=== PATIENT | female | born 1950 | race Caucasian/White ===

== ENCOUNTER → 2020-01-11 10:02 | Outpatient (CLI) | payer MEDICARE, SELFPAY ==
[2020-01-12 09:31] LABS: COVID19 Sendout NOT DETECTED (Not Detect)
== END ==
PROVIDERS: Visit Provider Physician Assistant
DX: Z01.812 Encounter for preprocedural laboratory examination (principal)
CPT/HCPCS: 87635

== ENCOUNTER → 2020-07-29 13:10 | Outpatient (CLI) | payer MEDICARE, SELFPAY ==
[2020-07-29 14:44] LABS: COVID19 -Nasal RAPID Negative (Negative)
== END ==
PROVIDERS: Visit Provider Physician Assistant
DX: Z01.812 Encounter for preprocedural laboratory examination (principal); Z20.822 Contact with and (suspected) exposure to COVID-19
CPT/HCPCS: 87635; C9803

== ENCOUNTER → 2021-11-21 15:14 | Outpatient (CLI) | payer OTHER, SELFPAY ==
[2021-11-21 16:07] LABS: COVID19 -Nasal RAPID Negative (Negative)
== END ==
PROVIDERS: Visit Provider Family Medicine Sleep Medicine
DX: Z20.822 Contact with and (suspected) exposure to COVID-19 (principal)
CPT/HCPCS: 87635; C9803

== ENCOUNTER 2021-11-24 12:33 | Day surgery (SDC) | payer OTHER, MEDICARE, SELFPAY ==
--- NOTE | 2021-11-24 | PATH_ITS ---
[facility] Accession Number: [id number] . 01 Material submitted: . PART A: duodenum - DUODNEAL PART B: stomach - ANTRAL . 02 Diagnosis: A. Duodenal: Mild active duodenitis, non-specific. Negative for granulomas, dysplasia, and malignancy. . B. Antral: Portions of gastric antral and body type mucosa with mild chronic gastritis. Negative for Helicobacter organisms by immunohistochemistry. Negative for intestinal metaplasia. Negative for dysplasia or malignancy. [facility] 11/27/2021 1312 Local . 02 Electronically signed: . Betty Israel MD, Pathologist NPI- [id number] . 01 Gross description: . Part A: DUODNEAL: Received in formalin are 4 fragment(s) of harris, soft tissue measuring 0.3 x 0.2 x 0.2 cm to 0.2 x 0.2 x 0.1 cm submitted entirely in 1 cassette(s) Part B: ANTRAL: Received in formalin are 2 fragment(s) of harris, soft tissue measuring 0.2 x 0.2 x 0.1 cm to 0.2 x 0.1 x 0.1 cm submitted entirely in 1 cassette(s) /[facility]BJ 11/25/2021 0917 Local . 02 Microscopic: . B. An immunohistochemical stain is performed to evaluate for Helicobacter organisms and is negative. The control stain shows appropriate reactivity. . * This test was developed and its performance characteristics determined by [employer]. It has not been cleared or approved by the U.S. Food and Drug Administration. The FDA has determined that such clearance or approval is not necessary. This test is used for clinical purposes. It should not be regarded as investigational or for research. . 02 Pathologist provided ICD-10: D50.9, Z80.0 . 02 CPT . 586810, 742437, A39143 Specimen Comment: A courtesy copy of this report has been sent to [facility] Pathology Performed at: 01 [facility] [address] [id number] MD Lion Weller MD Phone: [phone] Performed at: [facility] [address] [place], [place] [id number] MD Veronica Romeo MD Phone: [phone]
[2021-11-24] MEDS: SODIUM CHLORIDE 0.9% 1,000 ML 84 ML IV (13:42)
[2021-11-24 14:06] VITALS: BP 146/78; PULSE 102; RESP 18; TEMP 36.3; O2SAT 97; BMI 23.1
--- NOTE | 2021-11-24 14:29 | PM.HP.1 ---
History of Present Illness History of Present Illness Date Patient Seen: 11/24/21 Time Patient Seen: 14:30 Chief complaint: SDC Narrative: I reviewed the note by Dr. Samuel from October 09, 2021. No significant changes with the exception of the patient reports dark red blood per rectum on a regular basis over the last month. Patient History Medical History Allergic rhinitis Anxiety Crohn's disease Depression GERD (gastroesophageal reflux disease) History of malignant neoplasm of pancreas Hypothyroidism Hypoxemia requiring supplemental oxygen Insomnia Obstructive sleep apnea syndrome Periodic limb movement disorder (PLMD) Rheumatoid arthritis Urinary incontinence Surgical History H/O bilateral breast reduction surgery H/O tubal ligation History of bowel resection Family & Social History Family History Mother Substance abuse in family Hypertension Daughter Anxiety Bipolar disorder Depression Father Obesity Other Obstructive sleep apnea Social History: household members none Tobacco & Substance use: Smoking Status Former smoker alcohol intake former Substance Use Type does not use Meds Home Medications and Allergies Home Medications Medication Instructions Recorded Confirmed Type albuterol sulfate 90 mcg/actuation 90 inh INHALATION TID PRN 11/24/21 11/24/21 History aerosol inhaler alprazolam 0.5 mg tablet 0.5 mg PO TID PRN 11/24/21 11/24/21 History colestipol 1 gram tablet 1 g PO BID 11/24/21 11/24/21 History duloxetine 60 mg capsule,delayed 120 mg PO DAILY 11/24/21 11/24/21 History release hydrocodone 10 mg-acetaminophen 10 - 325 tab PO USEASDIRECTD PRN 11/24/21 11/24/21 History 325 mg tablet Allergies Allergy/AdvReac Type Severity Reaction Status Date / Time penicillin G [PENICILLIN G] Allergy Mild Verified 11/24/21 13:44 prochlorperazine Allergy Unknown Verified 11/24/21 13:44 [PROCHLORPERAZINE] Review of Systems Review of Systems ROS: Yes All systems reviewed with the patient and are negative except as otherwise documented Exam Vital Signs (past 8 hours): - 11/24/21 14:06 Temperature 97.4 F L Pulse Rate 102 H Respiratory Rate 18 Blood Pressure 146/78 H Pulse Oximetry 97 Oxygen Delivery Method Room Air Const General: cooperative and comfortable Orientation: alert HENMT Head: normocephalic Ears: external ears normal Nose: external nose normal Face and sinus: normal facial exam Mouth: oral mucosae normal Eyes General: appearance normal, both eyes and all related structures Neck Neck: normal visual inspection Chest Chest: normal inspection of the chest Resp Effort & Inspection: normal respiratory effort Cardio Rate: regular rate GI Inspection: normal to inspection Skin General: no rashes or lesions noted and No jaundice Neuro General: patient alert and moves all extremities Cognition: normal cognition Speech: speech normal Extrem General: no pedal edema Psych Appearance: grossly normal Assessment & Plan Assessment & Plan narrative: 71-year-old female with iron deficiency anemia. Red blood per rectum. Repeat EGD and colonoscopy are pursued today. Time Spent With Patient Critical Care time: I spent a total of [] minutes of critical care time on this patient's care today; this time is exclusive of procedural time.
--- NOTE | 2021-11-24 14:31 | PM.PREOP ---
Pre-operative Note COVID-19 COVID-19 status: Negative Result date/Date tested (Pos, Neg/Pending): 11/21/21 Criteria for continued procedure: Possibility delay results in more complex future surgery or treatment Interval Note History & Physical reviewed/Exam performed by Physician: Yes Changes to H&P: Yes ASA Class (for procedural sedation): II
--- NOTE | 2021-11-24 15:33 | P.OP.EGD&C_ITS ---
Operative Date/Time/Diagnoses Date of procedure: 11/24/21 Time of procedure: 15:33 Pre-op diagnosis: Iron deficiency anemia and rectal bleeding. Post-op diagnosis: same Procedure & Clinicians Study performed: EGD with biopsies and colonoscopy Same procedure as scheduled: Yes Indications: Iron deficiency anemia and rectal bleeding. Surgeon: Robert Hearn Procedure Notes SCOAP/Timeout: Done Procedure in detail: After the risks and benefits were explained, written and verbal informed consent was obtained. The patient was brought into the procedure room and placed into the left lateral decubitus position. Please see nurse irrigationist designer notes for sedation details. The scope was introduced into the mouth through the bite block and advanced under direct visualization to the 2nd portion of the duodenum. The scope was slowly withdrawn carefully examining the mucosa for any defects or lesions. Retroflexed views were accomplished in the stomach. The stomach was decompressed, the scope was then removed from the patient who tolerated the procedure well. The patient was turned around. A digital rectal examination accomplished. Grade 1 hemorrhoids noted. The scope was introduced into the rectum and advanced to the right hemicolectomy anastomosis. The carlos terminal ileum was interrogated for perhaps 10 cm. The scope was then slowly withdrawn to carefully examine the mucosa for any defects or lesions. Multiple direct views were made through the dentate line. The colon was decompressed. The scope was removed from the patient tolerated the procedure well. Pediatric colonoscope Bowel prep adequate Scope withdrawal time: 10 minutes Sedation minutes: 31 Complications: none Impression: 1. Duodenum: There was a large diverticulum within the 2nd portion associated with the region of the major papilla. In fact there was evidence of diverticular a within the large diverticulum. Otherwise no mucosal pathology was appreciated. Random D2 biopsies were taken for exclusion of sprue. 2. Stomach: No gastric outlet obstruction. No ulcers no mass lesions. The patient had a slightly tortuous antrum. There was evidence of a mild erosive gastropathy. Biopsies were taken from the antral mucosa for exclusion of Helicobacter or other pathology. Retroflexed views of the LES were unremarkable. 3. Esophagus: The squamocolumnar junction correlated with the top of the gastric folds. The GEJ was at about 44 cm from the incisors. No acute erosive changes no strictures no mass lesions. The remainder of the esophagus was unremarkable. 4. Carlos terminal ileum: This was entirely normal. No sign of any inflammatory bowel disease. 5. Right hemicolectomy anastomosis: This was widely patent and without any associated inflammatory features. 6. Colon: No sign of any colitis throughout. No polyps mass lesions or vascular anomalies identified throughout. Mild diverticulosis was seen in the left colon. Endoscopic diagnosis 1. Duodenal diverticuli 2. Erosive gastropathy 3. Patent right hemicolectomy anastomosis 4. Diverticulosis 5. Grade 1 hemorrhoids Post-procedure Plan for aftercare: 1. Await histopathology. 2. If no features are identified to account for an iron deficiency anemia, the patient might be considered for capsule endoscopy. 3. Considering family history, repeat colonoscopy 5 years. Disposition: PACU
[2021-11-24 15:35] VITALS: BP 132/80; PULSE 88; RESP 16; TEMP 36.1; O2SAT 100
[2021-11-24 15:40] VITALS: BP 133/70; BP 147/69; PULSE 84; RESP 20; RESP 23; O2SAT 100; O2SAT 99
[2021-11-24 15:49] VITALS: BP 127/56; PULSE 86; RESP 20; TEMP 36.2; O2SAT 100
[2021-11-24 16:55] VITALS: BP 138/84; PULSE 87; RESP 20; TEMP 36.7; O2SAT 100
--- NOTE | 2021-11-24 18:02 | SUR.PHASEII ---
1620 Patient transported to the car with portable O2 at [facility]. Comfortable, pleasant, stable on her feet. Expressed appreciation for care.
== END 2021-11-24 16:20 | disposition home or self-care (01) ==
PROVIDERS: Referring Provider Internal Medicine Gastroenterology; Visit Provider Internal Medicine Gastroenterology
PROC: 0DJ08ZZ Inspection of Upper Intestinal Tract, Via Natural or Artificial Opening Endoscopic (ICD-10-PCS; CPT 43235; principal; 2021-11-24 14:00)
PROC: 0DJD8ZZ Inspection of Lower Intestinal Tract, Via Natural or Artificial Opening Endoscopic (ICD-10-PCS; CPT 45378; 2021-11-24 14:00)
DX: K62.5 Hemorrhage of anus and rectum (principal); D50.9 Iron deficiency anemia, unspecified; K50.90 Crohn's disease, unspecified, without complications; M35.00 Sjogren syndrome, unspecified; E03.9 Hypothyroidism, unspecified; M79.7 Fibromyalgia; J45.909 Unspecified asthma, uncomplicated; K64.0 First degree hemorrhoids; K31.9 Disease of stomach and duodenum, unspecified; K57.30 Diverticulosis of large intestine without perforation or abscess without bleeding; K29.50 Unspecified chronic gastritis without bleeding; K29.80 Duodenitis without bleeding
CPT/HCPCS: 43239; 45378; J2704; J3010

== ENCOUNTER → 2022-02-24 13:24 | Outpatient (CLI) | payer OTHER, SELFPAY ==
--- NOTE | 2022-02-24 | DI.RAD.S_ITS ---
PROCEDURE: XR ABDOMEN 1V INDICATIONS: Foreign body in small intestine, initial encounter TECHNIQUE: One view of the abdomen acquired. COMPARISON: Outside Film, CT, CT ABDOMEN PELVIS WITH CONTRAST, 08/04/2017, 15:32. FINDINGS: Surgical changes and devices: Surgical clips in the right upper quadrant. Bowel: Bowel gas pattern is nonspecific. Soft tissues: No suspicious abdominal calcifications. Visualized solid organ contours appear normal in size. Bones: No suspicious bony lesions. Degenerative changes in the lower lumbar spine. IMPRESSION: 1. No radiopaque foreign bodies. 2. Nonspecific bowel gas pattern. Dictated by: Geovanni Mcdonald M.D. on 02/24/2022 at 22:01 Approved by: Geovanni Mcdonald M.D. on 02/24/2022 at 22:03
== END ==
LOC: RAD 13:27
PROVIDERS: PCP Family Medicine; Referring Provider Internal Medicine Gastroenterology; Visit Provider Internal Medicine Gastroenterology
DX: T18.3XXA Foreign body in small intestine, initial encounter (principal)
CPT/HCPCS: 74018